=== PATIENT | male | born 1990 | race American Indian/Alaskan Native ===

== ENCOUNTER 2022-04-09 16:51 | Emergency (ER) | payer OTHER ==
[2022-04-09 17:00] VITALS: BP 85/66; PULSE 65; RESP 16; TEMP 98.2
[2022-04-09] MEDS ORDERED: MORPHINE SULFATE 4 MG/ML SYRINGE IM STA (17:07)
[2022-04-09] MEDS ORDERED: DIPH,PERTUS(ACELL)TETVAC-LF 0.5 ML VIAL IM ONE (17:07)
[2022-04-09] MEDS ORDERED: CEPHALEXIN 500 MG CAP PO STA (17:12)
[2022-04-09] MEDS ORDERED: LIDOCAINE 1% INJ 10MG/ML (10 ML MDV) SQ STA (17:20)
--- NOTE | 2022-04-09 17:25 | XR ---
EXAMINATION TYPE: XR hand complete RT DATE OF EXAM: 04/09/2022 COMPARISON: NONE HISTORY: Laceration TECHNIQUE: 3 views FINDINGS: There is some soft tissue swelling around the first metacarpal. I see no fracture nor dislo cation. No evidence of a foreign body. IMPRESSION: Soft tissue swelling and air bubbles seen at the anterior aspect of the first metacarpal consistent with laceration. No fracture. No evidence of a foreign body.
[2022-04-09] MEDS ORDERED: LIDOCAINE 1% INJ 10MG/ML (5 ML VIAL-PF) SQ STA (17:27)
--- NOTE | 2022-04-09 17:49 | ED ---
Wound/Laceration HPI - General Chief Complaint: Wound/Laceration Stated Complaint: laceration Time Seen by Provider: 04/09/22 16:54 Source: patient Mode of arrival: ambulatory Limitations: no limitations - History of Present Illness Initial Comments: Patient is a 31-year-old male who presents to the emergency departments for right hand laceration. Patient states he was carrying a glass bottle when he tripped and landed on the glass bottle causing it to break and cut his right hand. Patient has a cut over the right thumb and palm. Patient reports mild pain. He denies numbness and tingling. Patient states he is unable to bend his right thumb. - Related Data Previous Rx's Medication Instructions Recorded Cephalexin [Keflex] 500 mg PO Q6HR #20 cap 04/09/22 Allergies Allergy/AdvReac Type Severity Reaction Status Date / Time No Known Allergies Allergy Verified 04/09/22 17:00 Review of Systems ROS Statement: Those systems with pertinent positive or pertinent negative responses have been documented in the HPI. ROS Other: All systems not noted in ROS Statement are negative. Past Medical History Past Medical History: Coronary Artery Disease (CAD) Additional Past Surgical History / Comment(s): CABG Past Psychological History: No Psychological Hx Reported General Exam Limitations: no limitations General appearance: alert, in no apparent distress Head exam: Present: atraumatic, normocephalic, normal inspection Eye exam: Present: normal appearance, PERRL, EOMI. Absent: scleral icterus, conjunctival injection, periorbital swelling Respiratory exam: Present: normal lung sounds bilaterally. Absent: respiratory distress, wheezes, rales, rhonchi, stridor Cardiovascular Exam: Present: regular rate, normal rhythm, normal heart sounds. Absent: systolic murmur, diastolic murmur, rubs, gallop, clicks Right Forearm Wrist exam: Present: normal inspection, full ROM Hand Wrist exam: Present: full ROM, laceration (approximately 6 cm in palmar webbing between first and second digit, beginning just proximal to base of thumb and extending over lateral first metacarpal region) Neuro motor exam: Present: wrist extension intact, thumb opposition intact, thumb adduction intact, fingers 2-5 abduction intact. Absent: thumb IP flexion intact Vascular: Present: normal capillary refill, radial pulse, brachial pulse, ulnar pulse. Absent: vascular compromise Neurological exam: Present: alert, oriented X3, CN II-XII intact Psychiatric exam: Present: normal affect, normal mood Course Vital Signs 04/09/22 16:55 Temperature 98.2 F Pulse Rate 65 Respiratory 16 Rate Blood Pressure 85/66 O2 Sat by Pulse 99 Oximetry Procedures - Laceration Laceration #1 Consent Obtained: verbal consent Indication: laceration Site: other (right hand ) Size (cm): 6 Description: irregular Depth: involves tendon Anesthetic Used: lidocaine 1% Anesthesia Technique: local infiltration, nerve block Pre-repair: wound explored, irrigated extensively Type of Sutures: nylon, vicryl Size of Sutures: 3-0, 5-0 Complications: bleeding Patient Tolerated Procedure: well Medical Decision Making - Medical Decision Making This is a 31-year-old male who presents for laceration. Thorough history and examination were performed. The laceration approximately 6 cm in palmar webbing between first and second digit, beginning just proximal to base of thumb and extending over lateral first metacarpal region. Neurovascularly intact. There is full range of motion of the 2nd-5th right fingers. Patient is able to extend the right arm however he is not able to flex at the PIP or DIP joint. He denies numbness and tingling. X-ray negative for fracture and foreign body. I spoke glaucoma specialist Dr. Ervin over the phone personally who recommended closure with close follow-up. Patient presented with significant bleeding. Direct pressure failed to stop the bleed. The wound was irrigated extensively. I was able to stop the bleed with 3 Vicryl sutures. There did appear to be tendon damage. The wound was well approximated with 10 nylon sutures. Patient tolerated the procedure well. Tetanus updated. Keflex given in the emergency department. Wound care instruction provided in detail. Patient will be discharged with Keflex prescription and short course of Bellflower for severe pain. Patient states juanita e lives in [place] so he will follow up with an glaucoma specialist more locally. I reiterated the importance of following up at earliest available appointment. Return parameters discussed. Patient verbalizes understanding and is agreeable to this plan. Dr. Alcazar is my attending. Disposition Clinical Impression: Laceration Disposition: HOME SELF-CARE Condition: Good Instructions (If sedation given, give patient instructions): Care For Your Stitches (ED), Laceration (ED) Additional Instructions: Take antibiotic as directed. Please call glaucoma specialist on Monday to schedule an appointment earliest availability. Keep pressure dressing on today. Tomorrow and on leave wound uncovered. Keep wound clean and dry. Wash with a mild soap. Take Tylenol or anti-inflammatories such as Motrin for pain. You may also take the Bellflower that was prescribed to you Do not take Bellflower and Tylenol together. Return for suture removal in 14 days or when advised by glaucoma specialist. Report back to the emergency department if you experience new, concerning, or worsening symptoms. Prescriptions: Cephalexin [Keflex] 500 mg PO Q6HR #20 cap Is patient prescribed a controlled substance at d/c from ED?: Yes If prescribed controlled substance>3 days was MAPS reviewed?: Yes Referrals: Nonstaff,Physician [Primary Care Provider] - 1-2 days Jacquelin Ervin DO [Doctor of Osteopathic Medicine] - 1-2 days Time of Disposition: 19:25
== END 2022-04-09 19:51 | disposition home or self-care (01) ==
LOC: EC 16:51
DX: S61.411A Laceration without foreign body of right hand, initial encounter (principal); I25.10 Atherosclerotic heart disease of native coronary artery without angina pectoris; Z23 Encounter for immunization; W18.09XA Striking against other object with subsequent fall, initial encounter; Y28.0XXA Contact with sharp glass, undetermined intent, initial encounter
CPT/HCPCS: 90471; 99283; 13132; 73130; 90715; J2001